=== PATIENT | female | born 1940 | race Caucasian/White ===

== ENCOUNTER 2016-04-12 20:35 | Emergency (ER) | payer OTHER, BC ==
[~2016-04-12] VITALS: Ht 157.5 cm; Wt 48.6 kg
[2016-04-12] MEDS ORDERED: AMANTADINE100 MG PO (21:32)
[2016-04-12] MEDS ORDERED: GABAPENTIN300 MG PO (21:32)
[2016-04-12] MEDS ORDERED: LORAZEPAM0.5 MG PO (21:34)
[2016-04-12] MEDS ORDERED: REFRESH TEARS15 ML BOTH EYES (21:36)
[2016-04-12] MEDS ORDERED: ACCUVITE PO (21:37)
[2016-04-12] MEDS ORDERED: LOSARTAN POTASS50 MG PO (21:37)
[2016-04-12] MEDS ORDERED: PRAMIPEXOLE D0.25 MG PO (21:38)
[2016-04-12] MEDS ORDERED: CARBIDOPA/LEVO1 EACH PO (21:38)
[2016-04-12 23:15] VITALS: BP 158/113
== END 2016-04-12 23:48 | disposition home or self-care (01) ==
LOC: RME 20:35 → EME 20:35 → RME 23:48
PROC: 0HQ0XZZ Repair Scalp Skin, External Approach (ICD-10-PCS; principal; 2016-04-12)
PROC: 3E0234Z Introduction of Serum, Toxoid and Vaccine into Muscle, Percutaneous Approach (ICD-10-PCS; 2016-04-12)
DX: S01.01XA Laceration without foreign body of scalp, initial encounter (principal); W17.89XA Other fall from one level to another, initial encounter; V48.4XXA Person boarding or alighting a car injured in noncollision transport accident, initial encounter; I10 Essential (primary) hypertension; Z23 Encounter for immunization; G20 Parkinson's disease; Z79.82 Long term (current) use of aspirin
CPT/HCPCS: 70450; 99281; 99284

== ENCOUNTER 2016-05-04 17:59 | Inpatient (IN) | payer OTHER, BC ==
[~2016-05-04] VITALS: Ht 162.6 cm; Wt 54.0 kg
[~2016-05-04 17:59] MED LIST: ACCUVITE PO; AMANTADINE100 MG PO; CARBIDOPA/LEVO1 EACH PO; GABAPENTIN300 MG PO; LORAZEPAM0.5 MG PO; LOSARTAN POTASS50 MG PO; PRAMIPEXOLE D0.25 MG PO; REFRESH TEARS15 ML BOTH EYES
[2016-05-04 19:01] LABS: MCH 30.3 PG (29.0-34.0); MCHC 32.9 G/DL (30.0-36.0); MCV 91.9 FL (83-99); MEAN PLAT.VOLUME 8.3 uM^3 (9.5-12.4); PLATELET COUNT 316 K/uL (156-360); RBC DIS.WIDTH-CV 13.7 % (11.8-14.6); RBC DIS.WIDTH-SD 46.2 % (39-53); WHITE BLOOD COUNT 10.7 K/uL (4.1-10.2)
[2016-05-04 19:12] LABS: CHLORIDE 103 mEq/L (99-109); POTASSIUM 4.4 mEq/L (3.7-5.4); SODIUM 135 mEq/L (136-147)
[2016-05-04 19:14] LABS: GLUCOSE 142 mg/dL (70-99)
[2016-05-04 19:15] LABS: ANION GAP 13 MEQ/L (2-14)
[2016-05-04 19:16] LABS: TOTAL BILIRUBIN 0.3 mg/dL (0.0-1.0)
[2016-05-04 19:18] LABS: ALKALINE PHOSPHATASE 106 IU/L (3-129); GFR ESTIMATE (CALCULATED) 43 mL/min/
[2016-05-04 19:19] LABS: UREA NITROGEN (BUN) 29 mg/dL (9-23)
[2016-05-04 19:19] LABS: ADD MIUA? YES; BILIRUBIN NEGATIVE; BLOOD NEGATIVE; COLOR YELLOW ((YELLOW)); GLUCOSE (STRIP) NEGATIVE; KETONES 5; LEUKOCYTES SMALL; NITRITE NEGATIVE; PROTEIN (STRIP) 30; UROBILINOGEN 0.2 MG/DL (0.2-1.0)
[2016-05-04 19:21] LABS: LIPASE 20 U/L (1.0-51.0)
[2016-05-04 19:27] LABS: TROP-I INTERPRETATION NEGATIVE; TROPONIN-I < 0.01 ng/mL (0.0-0.30)
[2016-05-04 20:18] LABS: BACTERIA 3+ /HPF; EPITHELIAL CELLS 3+ /HPF; MUCUS 3+ /LPF; UCUL ADDED? YES
[2016-05-04] MEDS ORDERED: SINEMET 25-1001 EACH PO (20:42)
[2016-05-04] MEDS ORDERED: SINEMET CR 25-1 EACH PO (20:43)
[2016-05-04] MEDS ORDERED: OCUVITE TABLET1 EACH PO (20:44)
[2016-05-04] MEDS ORDERED: KLOR-CON M2020 MEQ PO (20:44)
[2016-05-04] MEDS ORDERED: ALEVE220 M2 PO (20:45)
[2016-05-05 06:25] LABS: HEMATOCRIT 34.2 % (36.0-46.0); MCH 29.6 PG (29.0-34.0); MCHC 32.2 G/DL (30.0-36.0); MCV 91.9 FL (83-99); MEAN PLAT.VOLUME 8.3 uM^3 (9.5-12.4); PLATELET COUNT 313 K/uL (156-360); RBC DIS.WIDTH-CV 13.8 % (11.8-14.6); RBC DIS.WIDTH-SD 46.5 % (39-53); RED BLOOD COUNT 3.72 M/uL (3.80-5.20); WHITE BLOOD COUNT 7.5 K/uL (4.1-10.2)
[2016-05-05 06:35] LABS: CHLORIDE 109 mEq/L (99-109); POTASSIUM 3.9 mEq/L (3.7-5.4); SODIUM 137 mEq/L (136-147)
[2016-05-05 06:38] LABS: ANION GAP 8 MEQ/L (2-14)
[2016-05-05 06:41] LABS: GFR ESTIMATE (CALCULATED) 58 mL/min/
[2016-05-05 06:42] LABS: UREA NITROGEN (BUN) 21 mg/dL (9-23)
[2016-05-05 06:50] LABS: GLUCOSE 98 mg/dL (70-99)
[2016-05-05 08:54] VITALS: BP 133/80
[2016-05-05 11:28] VITALS: BP 148/83
[2016-05-05 15:45] VITALS: BP 131/74
[2016-05-05 19:50] VITALS: BP 145/90
[2016-05-05 23:38] VITALS: BP 184/98
[2016-05-06 03:44] VITALS: BP 142/91
[2016-05-06 07:29] VITALS: BP 179/109
[2016-05-06 07:34] LABS: HEMATOCRIT 33.7 % (36.0-46.0); MCH 29.6 PG (29.0-34.0); MCV 92.3 FL (83-99); MEAN PLAT.VOLUME 8.3 uM^3 (9.5-12.4); PLATELET COUNT 331 K/uL (156-360); RBC DIS.WIDTH-CV 13.9 % (11.8-14.6); RBC DIS.WIDTH-SD 47.1 % (39-53); RED BLOOD COUNT 3.65 M/uL (3.80-5.20); WHITE BLOOD COUNT 6.8 K/uL (4.1-10.2)
[2016-05-06 07:55] LABS: ANION GAP 8 MEQ/L (2-14); CHLORIDE 113 MEQ/L (99-109); GFR ESTIMATE (CALCULATED) > 59 mL/min/; GLUCOSE 78 mg/dL (70-99); POTASSIUM 3.8 MEQ/L (3.7-5.4); SAMPLE HEMOLYSIS CHECK 0; SAMPLE ICTERIC CHECK 0; SAMPLE LIPEMIA CHECK 0; SODIUM 143 MEQ/L (136-147); UREA NITROGEN (BUN) 12 mg/dL (9-23)
[2016-05-06 11:23] VITALS: BP 145/79
[2016-05-06 15:54] VITALS: BP 127/88
[2016-05-06 19:39] VITALS: BP 151/101
[2016-05-07 00:47] VITALS: BP 142/91
[2016-05-07 03:39] VITALS: BP 131/74
[2016-05-07 07:32] LABS: HEMATOCRIT 36.3 % (36.0-46.0); MCH 29.6 PG (29.0-34.0); MCHC 31.7 G/DL (30.0-36.0); MCV 93.3 FL (83-99); MEAN PLAT.VOLUME 8.5 uM^3 (9.5-12.4); PLATELET COUNT 330 K/uL (156-360); RBC DIS.WIDTH-CV 13.9 % (11.8-14.6); RED BLOOD COUNT 3.89 M/uL (3.80-5.20); WHITE BLOOD COUNT 7.3 K/uL (4.1-10.2)
[2016-05-07 07:57] VITALS: BP 170/100
[2016-05-07 08:00] LABS: ANION GAP 10 MEQ/L (2-14); CHLORIDE 110 MEQ/L (99-109); GFR ESTIMATE (CALCULATED) > 59 mL/min/; GLUCOSE 78 mg/dL (70-99); SAMPLE HEMOLYSIS CHECK 0; SAMPLE ICTERIC CHECK 0; SAMPLE LIPEMIA CHECK 0; SODIUM 144 MEQ/L (136-147); UREA NITROGEN (BUN) 10 mg/dL (9-23)
[2016-05-07 11:07] VITALS: BP 162/94
[2016-05-07 15:18] VITALS: BP 171/98
[2016-05-08] VITALS: BP 146/108
[2016-05-08 08:30] VITALS: BP 180/80
[2016-05-08 08:50] VITALS: BP 180/100
[2016-05-08 09:38] LABS: D-DIMER ELISA 1.68 mg/L FEU (< 0.57)
[2016-05-08 09:44] LABS: ANION GAP 12 MEQ/L (2-14); CHLORIDE 110 MEQ/L (99-109); POTASSIUM 3.6 MEQ/L (3.7-5.4); SAMPLE HEMOLYSIS CHECK 0; SAMPLE ICTERIC CHECK 0; SAMPLE LIPEMIA CHECK 0; SODIUM 143 MEQ/L (136-147)
[2016-05-08 09:45] LABS: HEMATOCRIT 37.9 % (36.0-46.0); MCH 29.6 PG (29.0-34.0); MCHC 32.2 G/DL (30.0-36.0); MEAN PLAT.VOLUME 8.4 uM^3 (9.5-12.4); PLATELET COUNT 300 K/uL (156-360); RBC DIS.WIDTH-CV 13.7 % (11.8-14.6); RBC DIS.WIDTH-SD 46.1 % (39-53); RED BLOOD COUNT 4.12 M/uL (3.80-5.20); WHITE BLOOD COUNT 8.3 K/uL (4.1-10.2)
[2016-05-08 09:50] LABS: GFR ESTIMATE (CALCULATED) > 59 mL/min/; GLUCOSE 77 mg/dL (70-99); UREA NITROGEN (BUN) 14 mg/dL (9-23)
[2016-05-08 09:54] LABS: TROP-I INTERPRETATION NEGATIVE; TROPONIN-I 0.03 ng/mL (0.0-0.30)
[2016-05-08 12:00] VITALS: BP 146/89
[2016-05-08 17:01] VITALS: BP 180/80
[2016-05-08 22:16] LABS: POINT-OF-CARE METER ID UU14174225
[2016-05-08 23:57] VITALS: BP 116/83
[2016-05-09 04:24] VITALS: BP 142/84
[2016-05-09 07:26] LABS: HEMATOCRIT 38.5 % (36.0-46.0); MCH 29.3 PG (29.0-34.0); MCHC 31.7 G/DL (30.0-36.0); MCV 92.3 FL (83-99); MEAN PLAT.VOLUME 8.5 uM^3 (9.5-12.4); PLATELET COUNT 284 K/uL (156-360); RBC DIS.WIDTH-CV 13.7 % (11.8-14.6); RBC DIS.WIDTH-SD 46.1 % (39-53); RED BLOOD COUNT 4.17 M/uL (3.80-5.20); WHITE BLOOD COUNT 8.2 K/uL (4.1-10.2)
[2016-05-09 08:02] VITALS: BP 188/92
[2016-05-09 08:33] LABS: POINT-OF-CARE METER ID UU14174225
[2016-05-09 08:34] LABS: ANION GAP 13 MEQ/L (2-14); CHLORIDE 109 MEQ/L (99-109); GFR ESTIMATE (CALCULATED) > 59 mL/min/; GLUCOSE 113 mg/dL (70-99); POTASSIUM 3.4 MEQ/L (3.7-5.4); SAMPLE HEMOLYSIS CHECK 0; SAMPLE ICTERIC CHECK 0; SAMPLE LIPEMIA CHECK 0; SODIUM 142 MEQ/L (136-147); UREA NITROGEN (BUN) 20 mg/dL (9-23)
[2016-05-09 11:51] LABS: POINT-OF-CARE METER ID UU14174225
[2016-05-09 12:00] VITALS: BP 171/86
[2016-05-09 15:49] VITALS: BP 142/72
[2016-05-09 16:57] LABS: POINT-OF-CARE METER ID UU14174225
[2016-05-09 19:37] VITALS: BP 146/78
[2016-05-10 04:45] VITALS: BP 156/101
[2016-05-10 06:04] VITALS: BP 145/86
[2016-05-10 08:41] VITALS: BP 160/88
[2016-05-10 15:55] VITALS: BP 187/88
[2016-05-10 20:00] VITALS: BP 161/82
[2016-05-10 23:58] VITALS: BP 155/92
[2016-05-11 04:08] VITALS: BP 149/86
[2016-05-11 05:38] LABS: POINT-OF-CARE METER ID UU14174225
[2016-05-11 06:18] LABS: POINT-OF-CARE METER ID UU14174225
[2016-05-11 07:32] VITALS: BP 160/81
[2016-05-11 11:06] VITALS: BP 133/60
[2016-05-11 11:09] LABS: POINT-OF-CARE METER ID UU14188625
[2016-05-11 15:09] VITALS: BP 142/66
[2016-05-11 16:04] LABS: POINT-OF-CARE METER ID UU14188625
[2016-05-11 20:00] VITALS: BP 185/85
[2016-05-12] VITALS: BP 182/104
[2016-05-12 00:23] LABS: POINT-OF-CARE METER ID UU14188625
[2016-05-12 04:00] VITALS: BP 131/96
[2016-05-12 07:00] VITALS: BP 169/83
[2016-05-12 11:30] VITALS: BP 164/70
[2016-05-12 20:42] VITALS: BP 147/88
[2016-05-13] VITALS: BP 145/80
[2016-05-13 01:45] LABS: POINT-OF-CARE USER ID BHSKTD
[2016-05-13 04:05] VITALS: BP 142/78
[2016-05-13 08:00] VITALS: BP 152/71
[2016-05-13 11:02] VITALS: BP 135/83
[2016-05-13 13:43] LABS: HEMATOCRIT 33.5 % (36.0-46.0); MCH 29.7 PG (29.0-34.0); MCHC 31.9 G/DL (30.0-36.0); MCV 93.1 FL (83-99); RBC DIS.WIDTH-CV 13.4 % (11.8-14.6)
[2016-05-13 13:44] LABS: WHITE BLOOD COUNT 5.5 K/uL (4.1-10.2)
[2016-05-13 14:07] LABS: ANION GAP 7 MEQ/L (2-14); CHLORIDE 104 MEQ/L (99-109); POTASSIUM 3.3 MEQ/L (3.7-5.4); SAMPLE HEMOLYSIS CHECK 0; SAMPLE ICTERIC CHECK 0; SAMPLE LIPEMIA CHECK 0; SODIUM 138 MEQ/L (136-147)
[2016-05-13 14:13] LABS: GFR ESTIMATE (CALCULATED) > 59 mL/min/; GLUCOSE 93 mg/dL (70-99); UREA NITROGEN (BUN) 10 mg/dL (9-23)
[2016-05-13 14:27] LABS: MEAN PLAT.VOLUME 8.8 uM^3 (9.5-12.4)
[2016-05-13 14:29] LABS: PLATELET COUNT 195 K/uL (156-360)
[2016-05-13] MEDS ORDERED: AMANTADINE100 MG PO (14:46)
[2016-05-13] MEDS ORDERED: GABAPENTIN300 MG PO (14:46)
[2016-05-13] MEDS ORDERED: TRAZODONE HCL50 MG PO (14:46)
[2016-05-13] MEDS ORDERED: CARBIDOPA/LEVO1 EACH PO ×2 (14:46→15:02)
[2016-05-13] MEDS ORDERED: CARBIDOPA-LEVO1 EAC7 PO (14:46)
[2016-05-13 15:56] VITALS: BP 146/82
[2016-05-13 19:44] VITALS: BP 164/102
[2016-05-14 00:27] VITALS: BP 160/98
[2016-05-14 08:43] VITALS: BP 161/86
[2016-05-14 11:19] VITALS: BP 172/84
[2016-05-14] MEDS ORDERED: LORAZEPAM0.5 MG PO (15:27)
== END 2016-05-14 16:22 | DRG 71 ==
LOC: EME 17:59 → 4SOUTH 22:04 → EDOF 22:04 → 5SOUTH 22:04 → 4SOUTH 05-05 08:40 → 5SOUTH 05-06 15:27
PROVIDERS: Family Medicine; Hospitalist; Internal Medicine; Physician Assistant; Physician Assistant Medical
DX: G93.41 Metabolic encephalopathy (principal); N39.0 Urinary tract infection, site not specified; R44.3 Hallucinations, unspecified; E87.2 Acidosis; G20 Parkinson's disease; I10 Essential (primary) hypertension; R53.1 Weakness; R26.2 Difficulty in walking, not elsewhere classified; W19.XXXA Unspecified fall, initial encounter; S00.03XA Contusion of scalp, initial encounter; Z88.2 Allergy status to sulfonamides; D64.9 Anemia, unspecified; R13.10 Dysphagia, unspecified
CPT/HCPCS: 70450; 71010; 71275; 73560; 74230; 80048; 80053; 81003; 82607; 82948; 83605; 83690; 84443; 84484; 85027; 85379; 87040; 87086 GA; 92526 GN; 92610 GN; 92611 GN; 93005; 93970; 94799; 97530 GO; 97530 GP; 99281; 99284; G9033; J0696; J1644; J2060; J7030; J7040; J7050

== ENCOUNTER 2016-06-04 07:41 | Emergency (ER) | payer BC ==
[~2016-06-04] VITALS: Ht 157.5 cm; Wt 44.5 kg
[~2016-06-04 07:41] MED LIST changes: +ALEVE220 M2 PO; +CARBIDOPA-LEVO1 EAC7 PO; +KLOR-CON M2020 MEQ PO; +OCUVITE TABLET1 EACH PO; +SINEMET 25-1001 EACH PO; +SINEMET CR 25-1 EACH PO; +TRAZODONE HCL50 MG PO
[2016-06-04 08:23] LABS: BASOPHIL COUNT 0.1 K/uL (0-0.1); EOSINOPHIL (%) 3.3 % (0-5); EOSINOPHIL COUNT 0.2 K/uL (0-0.3); HEMATOCRIT 36.4 % (36.0-46.0); IMMATURE GRANULOCYTE (%) 0.6 % (0.0-0.7); INSTRUMENT ABS NEUTROPHIL CT 3.3 K/uL; LYMPHOCYTE COUNT 1.3 K/uL (1.0-2.8); MCH 30.1 PG (29.0-34.0); MCHC 31.9 G/DL (30.0-36.0); MCV 94.5 FL (83-99); MEAN PLAT.VOLUME 8.2 uM^3 (9.5-12.4); MONOCYTE (%) 9.9 % (3-12); MONOCYTE COUNT 0.5 K/uL (0-0.8); NEUTROPHIL (%) 60.9 % (45-76); NEUTROPHIL COUNT 3.3 K/uL (1.8-6.4); PLATELET COUNT 215 K/uL (156-360); RBC DIS.WIDTH-CV 14.3 % (11.8-14.6); RBC DIS.WIDTH-SD 49.5 % (39-53); RED BLOOD COUNT 3.85 M/uL (3.80-5.20); WHITE BLOOD COUNT 5.5 K/uL (4.1-10.2)
[2016-06-04 08:51] LABS: CHLORIDE 106 mEq/L (99-109); POTASSIUM 4.2 mEq/L (3.7-5.4); SODIUM 139 mEq/L (136-147)
[2016-06-04 08:53] LABS: GLUCOSE 84 mg/dL (70-99)
[2016-06-04 08:54] LABS: ANION GAP 8 MEQ/L (2-14)
[2016-06-04 08:57] LABS: GFR ESTIMATE (CALCULATED) > 59 mL/min/
[2016-06-04 08:58] LABS: UREA NITROGEN (BUN) 19 mg/dL (9-23)
[2016-06-04 08:58] LABS: ADD MIUA? NO; BILIRUBIN NEGATIVE; BLOOD NEGATIVE; COLOR STRAW ((YELLOW)); GLUCOSE (STRIP) NEGATIVE; KETONES NEGATIVE; LEUKOCYTES NEGATIVE; NITRITE NEGATIVE; PROTEIN (STRIP) NEGATIVE; SPECIFIC GRAVITY 1.009 (1.000-1.030); UCUL ADDED? NO; UROBILINOGEN 0.2 MG/DL (0.2-1.0)
[2016-06-04 10:03] VITALS: BP 146/90
== END 2016-06-04 10:05 ==
LOC: EME 07:41
PROVIDERS: Emergency Medicine
DX: S09.90XA Unspecified injury of head, initial encounter (principal); W01.190A Fall on same level from slipping, tripping and stumbling with subsequent striking against furniture, initial encounter; Y92.129 Unspecified place in nursing home as the place of occurrence of the external cause; G20 Parkinson's disease; I10 Essential (primary) hypertension
CPT/HCPCS: 70450; 80048; 81003; 85025; 99281; 99284